=== PATIENT | female | born 1960 | race African-American/Black ===

== ENCOUNTER 2017-04-02 18:21 | Inpatient (IN) | payer MEDICAID ==
[~2017-04-02] VITALS: Ht 167.6 cm; Wt 41.0 kg
[2017-04-02] MEDS ORDERED: SODIUM CHLORIDE FLUSH 10ML SYR IVF ONE (18:30)
[2017-04-02 19:17] LABS: BASOPHILS # (AUTO) 0.03 x10^3/uL (0-0.1); BASOPHILS % (AUTO) 0 % (0-1); EOSINOPHILS # (AUTO) 0.02 x10^3/uL (0-0.4); EOSINOPHILS % (AUTO) 0 % (1-7); LYMPHOCYTES % (AUTO) 23 % (22-44); MD NO; MEAN CORPUSCULAR HEMOGLOBIN 30.2 pg (27.0-34.8); MEAN CORPUSCULAR HGB CONC 32.5 g/dL (32.4-35.8); MEAN CORPUSCULAR VOLUME 92.9 fL (80-100); MEAN PLATELET VOLUME 9.1 fL (7.4-10.4); MONOCYTES # (AUTO) 0.27 x10^3/uL (0.2-0.8); MONOCYTES % (AUTO) 3 % (2-9); NEUTROPHILS # (AUTO) 6.56 x10^3/uL (1.8-6.8); NEUTROPHILS % (AUTO) 74 % (42-75); PLATELET COUNT 324 x10^3/uL (130-400); RED BLOOD COUNT 5.52 x10^6/uL (3.82-5.3); RED CELL DISTRIBUTION WIDTH 13.7 % (9.6-15.2)
[2017-04-02 19:53] LABS: ALANINE AMINOTRANSFERASE 13 U/L (12-78); ALBUMIN 3.7 g/dL (3.4-5.0); ANION GAP 7 mmol/L (5-15); CALCIUM 10.1 mg/dL (8.5-10.1); CHLORIDE 103 mmol/L (98-107)
[2017-04-02 19:57] LABS: ALKALINE PHOSPHATASE 87 U/L (45-117); BILIRUBIN,TOTAL 0.6 mg/dL (0.2-1.0); TOTAL PROTEIN 7.5 g/dL (6.4-8.2); TROPONIN I < 0.015 ng/mL (0.000-0.045)
[2017-04-02] MEDS ORDERED: POLYETHYLENE GLYCOL 17 GM PACKET PO PRN (20:30)
[2017-04-02] MEDS: HEPARIN 5,000 UNITS/ML, 1ML SQ SCH (20:30)
[2017-04-02] MEDS ORDERED: BACITRACIN ZINC OINT 500U/GM, 0.9 GM ONE (20:43)
[2017-04-02 23:25] VITALS: BP 126/90
[2017-04-03] MEDS: NICOTINE 7 MG/24 HR PATCH.TD24 TD SCH ×2 (02:08→20:32)
[2017-04-03] MEDS: HEPARIN 5,000 UNITS/ML, 1ML SQ SCH ×3 (02:08→20:34)
[2017-04-03] MEDS: SODIUM CHLORIDE 0.9% 1,000 ML IV SCH ×3 (02:16→22:54)
[2017-04-03] MEDS: ONDANSETRON 2MG/ML, 2ML IVPush PRN ×2 (02:17→19:22)
[2017-04-03 03:59] VITALS: BP 108/75
[2017-04-03] MEDS ORDERED: FLU VACC QS2017-18 (36MOS+) UP/PF 0.5 ML IM-VACC ONE (05:00)
[2017-04-03] MEDS ORDERED: PNEUMOCOCCAL 23 VACCINE IM-VACC ONE (05:00)
[2017-04-03 05:35] LABS: BASOPHILS # (AUTO) 0.02 x10^3/uL (0-0.1); BASOPHILS % (AUTO) 0 % (0-1); EOSINOPHILS # (AUTO) 0.03 x10^3/uL (0-0.4); EOSINOPHILS % (AUTO) 0 % (1-7); LYMPHOCYTES # (AUTO) 2.43 x10^3/uL (1-3.4); LYMPHOCYTES % (AUTO) 28 % (22-44); MD NO; MEAN CORPUSCULAR HEMOGLOBIN 30.7 pg (27.0-34.8); MEAN CORPUSCULAR HGB CONC 33.1 g/dL (32.4-35.8); MEAN CORPUSCULAR VOLUME 92.9 fL (80-100); MEAN PLATELET VOLUME 8.6 fL (7.4-10.4); MONOCYTES # (AUTO) 0.55 x10^3/uL (0.2-0.8); MONOCYTES % (AUTO) 6 % (2-9); NEUTROPHILS # (AUTO) 5.82 x10^3/uL (1.8-6.8); NEUTROPHILS % (AUTO) 66 % (42-75); PLATELET COUNT 323 x10^3/uL (130-400); RED CELL DISTRIBUTION WIDTH 13.8 % (9.6-15.2)
[2017-04-03 05:36] LABS: CHLORIDE 103 mmol/L (98-107)
[2017-04-03 05:46] LABS: ALANINE AMINOTRANSFERASE 13 U/L (12-78); ALBUMIN 3.1 g/dL (3.4-5.0); ALKALINE PHOSPHATASE 76 U/L (45-117); ANION GAP 6 mmol/L (5-15); BILIRUBIN,TOTAL 0.7 mg/dL (0.2-1.0); CALCIUM 9.7 mg/dL (8.5-10.1); CREATININE 0.76 mg/dL (0.55-1.02); TOTAL PROTEIN 6.5 g/dL (6.4-8.2); TROPONIN I < 0.015 ng/mL (0.000-0.045)
[2017-04-03] MEDS ORDERED: LACTULOSE 20 GM/30 ML UDC PO PRN (08:00)
[2017-04-03] MEDS: POLYETHYLENE GLYCOL 17 GM PACKET PO SCH ×2 (09:00→10:10)
[2017-04-03 09:36] VITALS: BP 108/73
[2017-04-03] MEDS: SENNA/DOCUSATE TABLET PO SCH (10:11)
[2017-04-03] MEDS: DOCUSATE 100 MG CAPSULE PO SCH ×2 (10:11→20:34)
[2017-04-03] MEDS: ACETAMINOPHEN 325 MG TABLET PO PRN ×2 (10:14→20:49)
[2017-04-03] MEDS: BISACODYL 10 MG SUPP PR SCH (13:22)
[2017-04-03 14:06] VITALS: BP 117/77
[2017-04-03 15:09] LABS: CULTURE INDICATED? YES; MICROSCOPIC INDICATED
[2017-04-03 15:23] LABS: AMPHETAMINE SCREEN, URINE Negative (Negative); BARBITURATE SCREEN, URINE Negative (Negative); BENZODIAZEPINE SCREEN, URINE Negative (Negative); CANNABINOID SCREEN, URINE Positive (Negative); COCAINE SCREEN, URINE Positive (Negative); METHADONE SCREEN, URINE Negative (Negative); OPIATE SCREEN, URINE Negative (Negative)
[2017-04-03 20:50] VITALS: BP 100/70
[2017-04-04] MEDS: ACETAMINOPHEN 325 MG TABLET PO PRN (02:27)
[2017-04-04 02:30] VITALS: BP 119/77
[2017-04-04] MEDS: HEPARIN 5,000 UNITS/ML, 1ML SQ SCH ×3 (04:31→20:56)
[2017-04-04 08:00] VITALS: BP 129/69
[2017-04-04] MEDS: SENNA/DOCUSATE TABLET PO SCH (08:52)
[2017-04-04] MEDS: SODIUM CHLORIDE 0.9% 1,000 ML IV SCH ×2 (08:52→17:38)
[2017-04-04] MEDS: POLYETHYLENE GLYCOL 17 GM PACKET PO SCH (08:52)
[2017-04-04] MEDS: BISACODYL 10 MG SUPP PR SCH (08:52)
[2017-04-04] MEDS: DOCUSATE 100 MG CAPSULE PO SCH ×2 (08:52→20:56)
[2017-04-04] MEDS ORDERED: METOCLOPRAMIDE 5 MG/ML, 2ML IVPush PRN (13:30)
[2017-04-04 14:00] VITALS: BP 93/63
[2017-04-04 19:50] VITALS: BP 116/73
[2017-04-04] MEDS: NICOTINE 7 MG/24 HR PATCH.TD24 TD SCH (20:56)
[2017-04-05 02:46] VITALS: BP 123/78
[2017-04-05] MEDS: SODIUM CHLORIDE 0.9% 1,000 ML IV SCH ×2 (05:02→17:00)
[2017-04-05] MEDS: HEPARIN 5,000 UNITS/ML, 1ML SQ SCH ×3 (05:03→20:23)
[2017-04-05 07:17] VITALS: BP 120/79
[2017-04-05] MEDS: SENNA/DOCUSATE TABLET PO SCH (08:36)
[2017-04-05] MEDS: DOCUSATE 100 MG CAPSULE PO SCH ×2 (08:36→19:46)
[2017-04-05] MEDS: BISACODYL 10 MG SUPP PR SCH (08:36)
[2017-04-05] MEDS: POLYETHYLENE GLYCOL 17 GM PACKET PO SCH (08:36)
[2017-04-05] MEDS: DIPHENHYDRAMINE 25 MG CAPSULE PO PRN ×2 (11:55→19:46)
[2017-04-05 14:28] VITALS: BP 124/76
[2017-04-05] MEDS ORDERED: OMNIPAQUE 350 MG/ML, 100ML BOTTLE ONE (17:08)
[2017-04-05] MEDS ORDERED: GLYB1TAB2 PO (17:40)
[2017-04-05] MEDS ORDERED: LINA5TAB PO (17:40)
[2017-04-05 19:30] VITALS: BP 105/64
[2017-04-05] MEDS: NICOTINE 7 MG/24 HR PATCH.TD24 TD SCH (20:23)
[2017-04-05] MEDS: TEMAZEPAM 15 MG CAPSULE PO PRN (22:06)
[2017-04-06] MEDS: DIPHENHYDRAMINE 25 MG CAPSULE PO PRN ×2 (01:50→17:43)
[2017-04-06] MEDS: SODIUM CHLORIDE 0.9% 1,000 ML IV SCH ×2 (01:51→17:43)
[2017-04-06 02:52] VITALS: BP 111/72
[2017-04-06] MEDS: HEPARIN 5,000 UNITS/ML, 1ML SQ SCH ×3 (05:05→20:06)
[2017-04-06 05:34] LABS: BASOPHILS # (AUTO) 0.07 x10^3/uL (0-0.1); BASOPHILS % (AUTO) 1 % (0-1); EOSINOPHILS # (AUTO) 0.29 x10^3/uL (0-0.4); EOSINOPHILS % (AUTO) 4 % (1-7); LYMPHOCYTES # (AUTO) 2.01 x10^3/uL (1-3.4); LYMPHOCYTES % (AUTO) 27 % (22-44); MD NO; MEAN CORPUSCULAR HEMOGLOBIN 30.9 pg (27.0-34.8); MEAN CORPUSCULAR HGB CONC 32.8 g/dL (32.4-35.8); MEAN PLATELET VOLUME 8.7 fL (7.4-10.4); MONOCYTES % (AUTO) 5 % (2-9); NEUTROPHILS # (AUTO) 4.71 x10^3/uL (1.8-6.8); NEUTROPHILS % (AUTO) 63 % (42-75); PLATELET COUNT 304 x10^3/uL (130-400); RED BLOOD COUNT 3.79 x10^6/uL (3.82-5.3); RED CELL DISTRIBUTION WIDTH 13.5 % (9.6-15.2)
[2017-04-06 05:37] LABS: ALBUMIN 2.5 g/dL (3.4-5.0); ANION GAP 6 mmol/L (5-15); CALCIUM 9.2 mg/dL (8.5-10.1); CHLORIDE 105 mmol/L (98-107)
[2017-04-06 05:41] LABS: ALANINE AMINOTRANSFERASE 10 U/L (12-78); ALKALINE PHOSPHATASE 73 U/L (45-117); BILIRUBIN,TOTAL 0.3 mg/dL (0.2-1.0); TOTAL PROTEIN 5.2 g/dL (6.4-8.2)
[2017-04-06] MEDS ORDERED: GOLYTELY 4,000ML ORAL.SOL PO ONE (07:30)
[2017-04-06] MEDS ORDERED: CEFTRIAXONE PMX 1GM/50ML 50 ML IV SCH (07:30)
[2017-04-06 08:26] VITALS: BP 118/75
[2017-04-06] MEDS: SENNA/DOCUSATE TABLET PO SCH (08:31)
[2017-04-06] MEDS: POLYETHYLENE GLYCOL 17 GM PACKET PO SCH (08:31)
[2017-04-06] MEDS: DOCUSATE 100 MG CAPSULE PO SCH ×2 (08:31→20:07)
[2017-04-06] MEDS: BISACODYL 10 MG SUPP PR SCH (08:37)
[2017-04-06 12:45] VITALS: BP 129/82
[2017-04-06 19:27] VITALS: BP 110/72
[2017-04-06] MEDS: NICOTINE 7 MG/24 HR PATCH.TD24 TD SCH (20:06)
[2017-04-06] MEDS ORDERED: CEFTRIAXONE 1,000 MG in SODIUM CHLORIDE 0.9% 50 ML IV SCH (20:30)
[2017-04-06] MEDS: TEMAZEPAM 15 MG CAPSULE PO PRN (23:13)
[2017-04-07] MEDS: DIPHENHYDRAMINE 25 MG CAPSULE PO PRN ×4 (00:35→19:48)
[2017-04-07 00:38] VITALS: BP 116/73
[2017-04-07] MEDS: SODIUM CHLORIDE 0.9% 1,000 ML IV SCH ×2 (05:07→11:45)
[2017-04-07] MEDS: HEPARIN 5,000 UNITS/ML, 1ML SQ SCH ×3 (05:07→19:49)
[2017-04-07 05:37] LABS: CHLORIDE 106 mmol/L (98-107)
[2017-04-07 05:44] LABS: ANION GAP 7 mmol/L (5-15); CALCIUM 9.1 mg/dL (8.5-10.1); CREATININE 0.61 mg/dL (0.55-1.02)
[2017-04-07] MEDS: SENNA/DOCUSATE TABLET PO SCH (07:47)
[2017-04-07] MEDS: DOCUSATE 100 MG CAPSULE PO SCH ×2 (07:47→19:50)
[2017-04-07] MEDS: BISACODYL 10 MG SUPP PR SCH (07:47)
[2017-04-07] MEDS: CEFTRIAXONE 1,000 MG in SODIUM CHLORIDE 0.9% 50 ML IV SCH (07:48)
[2017-04-07] MEDS: POLYETHYLENE GLYCOL 17 GM PACKET PO SCH (07:48)
[2017-04-07 08:00] VITALS: BP 111/65
[2017-04-07 14:12] VITALS: BP 93/61
[2017-04-07 19:24] VITALS: BP_SYST 134; BP_SYST 146; BP_DIAS 79; BP_DIAS 85
[2017-04-07] MEDS: TEMAZEPAM 15 MG CAPSULE PO PRN (19:48)
[2017-04-07] MEDS: NICOTINE 7 MG/24 HR PATCH.TD24 TD SCH (19:50)
[2017-04-08] MEDS ORDERED: ZOLPIDEM 5MG TABLET PO ONE (00:30)
[2017-04-08] MEDS: SODIUM CHLORIDE 0.9% 1,000 ML IV SCH ×2 (00:36→07:30)
[2017-04-08 01:30] VITALS: BP 119/73
[2017-04-08] MEDS: DIPHENHYDRAMINE 25 MG CAPSULE PO PRN (05:11)
[2017-04-08] MEDS: ACETAMINOPHEN 325 MG TABLET PO PRN (05:11)
[2017-04-08] MEDS: HEPARIN 5,000 UNITS/ML, 1ML SQ SCH (05:12)
[2017-04-08] MEDS: CEFTRIAXONE 1,000 MG in SODIUM CHLORIDE 0.9% 50 ML IV SCH (07:30)
[2017-04-08 08:11] VITALS: BP 106/76
[2017-04-08] MEDS: BISACODYL 10 MG SUPP PR SCH (09:24)
[2017-04-08] MEDS: POLYETHYLENE GLYCOL 17 GM PACKET PO SCH (09:26)
[2017-04-08] MEDS: DOCUSATE 100 MG CAPSULE PO SCH (09:26)
[2017-04-08] MEDS: SENNA/DOCUSATE TABLET PO SCH (09:26)
[2017-04-08] MEDS ORDERED: ONDA4TAB13 SL (10:32)
[2017-04-08] MEDS ORDERED: POLY17PO5 PO (10:32)
[2017-04-08] MEDS ORDERED: NICO-485 TD (10:32)
[2017-04-08] MEDS ORDERED: [UNRECOGNIZED DRUG - CODE] PO (10:32)
[2017-04-08] MEDS ORDERED: CEFD300C37 PO (10:32)
[2017-04-08] MEDS ORDERED: ACET325T14 PO (10:32)
== END 2017-04-08 11:33 | disposition home or self-care (01) | DRG 391 ==
LOC: ED 20:44 → EDIP 20:45 → 4NOR 22:30 → DCLOUNGE 04-08 11:20
PROVIDERS: ADMIT Internal Medicine; ATTEND Internal Medicine
DX: K59.00 Constipation, unspecified (principal); E43 Unspecified severe protein-calorie malnutrition; R18.8 Other ascites; E87.1 Hypo-osmolality and hyponatremia; D75.1 Secondary polycythemia; N39.0 Urinary tract infection, site not specified; Z68.1 Body mass index [BMI] 19.9 or less, adult; K76.89 Other specified diseases of liver; D25.9 Leiomyoma of uterus, unspecified; F12.90 Cannabis use, unspecified, uncomplicated; F14.10 Cocaine abuse, uncomplicated; J45.909 Unspecified asthma, uncomplicated; L29.9 Pruritus, unspecified; N83.9 Noninflammatory disorder of ovary, fallopian tube and broad ligament, unspecified; R62.7 Adult failure to thrive; Z66 Do not resuscitate; Z72.0 Tobacco use; Z23 Encounter for immunization
CPT/HCPCS: 36415; 71275; 74022; 74177; 76857; 80048; 80053; 80307; 81001; 82378; 83690; 83735; 84100; 84443; 84484; 85025; 86304; 86677; 86703; 87086; 87899; 93005; 96374; J0696; J1644; J2405; Q9967; G0435; J2765; J7030; Q0163

== ENCOUNTER 2018-05-12 20:29 | Inpatient (IN) | payer MEDICAID ==
[~2018-05-12] VITALS: Ht 167.6 cm; Wt 41.8 kg
[~2018-05-12 20:29] MED LIST: ACET325T14 PO; CEFD300C37 PO; GLYB1TAB2 PO; LINA5TAB PO; NICO-485 TD; ONDA4TAB13 SL; POLY17PO5 PO; [UNRECOGNIZED DRUG - CODE] PO
--- NOTE | 2018-05-12 20:54 | NUR ---
PT ARRIVES TO ED WITH C/O OF ABD PAIN WITH N/D NO VOMITTING. PT REPORTS SHE STARTED HAVING BLACK STOOLS TODAY. PT ALSO REPORTS NOT FEELING WELL FOR 2 DAYS. PT TO PROVIDE SAMPLE AT THIS TIME. PT DENIES ANY TRAUMA. PT CONNECTED TO ALL MONITORS AND CALL LIGHT IN REACH. AWAITING FURTHER ORDERS. PT HAD PIV PLACED AND FLUIDS STARTED. PT HAD EKG COMPLETED ON ARRIVAL.
[2018-05-12] MEDS ORDERED: ONDANSETRON 2MG/ML, 2ML ONE (20:59)
[2018-05-12] MEDS ORDERED: FAMOTIDINE 20 MG/2 ML ONE (20:59)
[2018-05-12] MEDS ORDERED: FAMOTIDINE 20 MG/2 ML IVP ONE (21:00)
[2018-05-12] MEDS ORDERED: SODIUM CHLORIDE FLUSH 10ML SYR IVF ONE (21:00)
[2018-05-12] MEDS ORDERED: ONDANSETRON 2MG/ML, 2ML IVPush ONE (21:00)
[2018-05-12] MEDS ORDERED: SODIUM CHLORIDE 0.9% 1,000ML IVBOLUS ONE (21:00)
[2018-05-12 21:14] LABS: BASOPHILS # (AUTO) 0.02 x10^3/uL (0-0.1); BASOPHILS % (AUTO) 0 % (0-1); EOSINOPHILS # (AUTO) 0.02 x10^3/uL (0-0.4); EOSINOPHILS % (AUTO) 0 % (1-7); LYMPHOCYTES # (AUTO) 1.63 x10^3/uL (1-3.4); LYMPHOCYTES % (AUTO) 12 % (22-44); MD NO; MEAN CORPUSCULAR HEMOGLOBIN 30.8 pg (27.0-34.8); MEAN CORPUSCULAR HGB CONC 32.9 g/dL (32.4-35.8); MEAN CORPUSCULAR VOLUME 93.8 fL (80-100); MEAN PLATELET VOLUME 8.5 fL (7.4-10.4); MONOCYTES # (AUTO) 0.51 x10^3/uL (0.2-0.8); MONOCYTES % (AUTO) 4 % (2-9); NEUTROPHILS # (AUTO) 11.37 x10^3/uL (1.8-6.8); NEUTROPHILS % (AUTO) 84 % (42-75); PLATELET COUNT 339 x10^3/uL (130-400); RED BLOOD COUNT 5.02 x10^6/uL (3.82-5.3); RED CELL DISTRIBUTION WIDTH 14.1 % (9.6-15.2)
[2018-05-12 21:22] LABS: INTERNATIONAL NORMALIZED RATIO 1.03 (0.93-1.1); PROTHROMBIN TIME 10.9 Seconds (9.6-11.5)
[2018-05-12 21:23] LABS: ALANINE AMINOTRANSFERASE 15 U/L (12-78); ALBUMIN 3.8 g/dL (3.4-5.0); ANION GAP 11 mmol/L (5-15); CALCIUM 10.5 mg/dL (8.5-10.1); CHLORIDE 104 mmol/L (98-107)
[2018-05-12 21:25] LABS: ALKALINE PHOSPHATASE 108 U/L (45-117); BILIRUBIN,TOTAL 0.5 mg/dL (0.2-1.0)
--- NOTE | 2018-05-12 21:41 | NUR ---
PT ABBY TO PROVIDE JOSEFINA A THIS ITME. Addendum: 05/12/18 at 2142 by JAUN PT UNABLE TO PROVIDE STOOL AT THIS TIME.
--- NOTE | 2018-05-12 22:12 | NUR ---
ASSUMED CARE OF PATIENT. REPORT GIVEN FROM CONSTANTINE CONN PT RESTING IN ROOM. VS STABLE. PT REPORTS SHE IS NOT ABLE TO GIVE A STOOL SAMPLE AT THIS TIME. WILL CONTINUE TO MONITOR
[2018-05-12] MEDS ORDERED: TRAZ50TA66 PO (22:24)
--- NOTE | 2018-05-12 22:24 | NUR ---
DR OATES HAS UPDATED PATIENT.
[2018-05-12] MEDS ORDERED: PANTOPRAZOLE 40 MG IV ONE (22:49)
[2018-05-12] MEDS ORDERED: SUCRALFATE 1 GM TABLET PO SCH ×3 (23:00→23:03)
[2018-05-12] MEDS ORDERED: PANTOPRAZOLE 40 MG IV IVPush SCH (23:00)
[2018-05-12 23:29] VITALS: BP 114/76
[2018-05-12] MEDS ORDERED: PANTOPRAZOLE 40 MG IV IVPush ONE (23:30)
[2018-05-13 01:28] VITALS: BP 113/79
[2018-05-13] MEDS ORDERED: GABAPENTIN 300 MG CAPSULE PO PRN (01:30)
[2018-05-13] MEDS ORDERED: PANTOPRAZOLE 80 MG in SODIUM CHLORIDE 0.9% 100 ML IV SCH (01:30)
[2018-05-13] MEDS ORDERED: [UNRECOGNIZED DRUG - OTHER] MC SCH ×2 (01:30→01:44)
[2018-05-13] MEDS ORDERED: ACETAMINOPHEN 325 MG TABLET PO PRN (01:30)
[2018-05-13] MEDS ORDERED: BISACODYL 10 MG SUPP PR PRN (01:30)
[2018-05-13] MEDS ORDERED: ONDANSETRON 2MG/ML, 2ML IVPush PRN (01:30)
[2018-05-13] MEDS ORDERED: LORazepam 2 MG/ML, 1ML IVPush ONE (02:00)
[2018-05-13] MEDS: SODIUM CHLORIDE 0.9% 1,000 ML IV SCH ×2 (02:24→17:24)
[2018-05-13 07:01] VITALS: BP 103/74
[2018-05-13] MEDS: PANTOPRAZOLE 40 MG IV IVPush SCH ×2 (08:48→19:32)
[2018-05-13] MEDS: AMOXICILLIN 500 MG CAPSULE PO SCH (08:49)
[2018-05-13] MEDS: CLARITHROMYCIN 500 MG TABLET PO SCH ×2 (08:49→20:33)
[2018-05-13] MEDS ORDERED: FAMOTIDINE 20 MG/2 ML IVPush SCH (09:00)
[2018-05-13] MEDS ORDERED: PANTOPRAZOLE 40 MG IV IVPush SCH (09:00)
[2018-05-13 12:55] VITALS: BP 97/63
[2018-05-13] MEDS: morphine SULFATE 10 MG/ML, 1ML IVPush PRN ×2 (13:48→19:33)
[2018-05-13] MEDS: D5%-0.45% NACL 1,000 ML IV SCH (14:58)
[2018-05-13] MEDS: TRAZODONE 50MG TABLET PO SCH (20:33)
[2018-05-13 20:40] VITALS: BP 98/66
[2018-05-14 00:05] VITALS: BP 107/75
[2018-05-14] MEDS: morphine SULFATE 10 MG/ML, 1ML IVPush PRN ×4 (00:28→16:24)
[2018-05-14] MEDS: D5%-0.45% NACL 1,000 ML IV SCH ×2 (03:40→16:29)
[2018-05-14 05:52] LABS: MEAN CORPUSCULAR HEMOGLOBIN 31.3 pg (27.0-34.8); MEAN CORPUSCULAR HGB CONC 33.3 g/dL (32.4-35.8); MEAN CORPUSCULAR VOLUME 94.1 fL (80-100); PLATELET COUNT 197 x10^3/uL (130-400); RED BLOOD COUNT 3.34 x10^6/uL (3.82-5.3); RED CELL DISTRIBUTION WIDTH 14.1 % (9.6-15.2)
[2018-05-14 06:01] LABS: ANION GAP 3 mmol/L (5-15); CALCIUM 8.9 mg/dL (8.5-10.1); CHLORIDE 108 mmol/L (98-107); CREATININE 0.76 mg/dL (0.55-1.02)
[2018-05-14 06:39] VITALS: BP 105/71
[2018-05-14 06:39] LABS: BASOPHILS # (AUTO) 0.03 x10^3/uL (0-0.1); BASOPHILS % (AUTO) 1 % (0-1); EOSINOPHILS # (AUTO) 0.06 x10^3/uL (0-0.4); EOSINOPHILS % (AUTO) 1 % (1-7); LYMPHOCYTES # (AUTO) 1.27 x10^3/uL (1-3.4); LYMPHOCYTES % (AUTO) 28 % (22-44); MD SCAN; MONOCYTES # (AUTO) 0.29 x10^3/uL (0.2-0.8); MONOCYTES % (AUTO) 6 % (2-9); NEUTROPHILS % (AUTO) 64 % (42-75)
[2018-05-14] MEDS: PANTOPRAZOLE 40 MG IV IVPush SCH ×2 (09:00→20:08)
[2018-05-14] MEDS ORDERED: PROPOFOL 10 MG/ML, 20ML ONE (09:16)
[2018-05-14] MEDS ORDERED: FENTANYL PF 100 MCG/2ML IV PRN (09:30)
[2018-05-14] MEDS ORDERED: ALBUTEROL SULFATE 2.5 MG/3 ML NPPB PRN (09:30)
[2018-05-14] MEDS: AMOXICILLIN 500 MG CAPSULE PO SCH (11:18)
[2018-05-14] MEDS: CLARITHROMYCIN 500 MG TABLET PO SCH ×2 (11:18→20:08)
[2018-05-14] MEDS: SODIUM CHLORIDE 0.9% 1,000 ML IV SCH (11:29)
[2018-05-14 12:11] VITALS: BP 111/67
[2018-05-14 19:05] VITALS: BP 102/55
[2018-05-14] MEDS: LORazepam 1MG TABLET PO PRN (20:08)
[2018-05-14] MEDS: TRAZODONE 50MG TABLET PO SCH (20:08)
[2018-05-15 00:10] VITALS: BP 101/59
[2018-05-15] MEDS: morphine SULFATE 10 MG/ML, 1ML IVPush PRN ×4 (00:24→12:33)
[2018-05-15] MEDS: D5%-0.45% NACL 1,000 ML IV SCH ×2 (01:48→12:00)
[2018-05-15] MEDS: LORazepam 1MG TABLET PO PRN (03:53)
[2018-05-15 06:57] VITALS: BP 100/62
[2018-05-15] MEDS: CLARITHROMYCIN 500 MG TABLET PO SCH (08:57)
[2018-05-15] MEDS: AMOXICILLIN 500 MG CAPSULE PO SCH (08:57)
[2018-05-15] MEDS: PANTOPRAZOLE 40 MG IV IVPush SCH (08:58)
[2018-05-15] MEDS ORDERED: OMEP-110 PO (13:54)
[2018-05-15] MEDS ORDERED: CLAR500T PO (13:54)
[2018-05-15] MEDS ORDERED: AMOX-291 PO (13:54)
[2018-05-15] MEDS ORDERED: TRAZ50TA66 PO (13:54)
[2018-05-15 14:00] VITALS: BP 105/59
[2018-05-15] MEDS: SODIUM CHLORIDE 0.9% 1,000 ML IV SCH (14:00)
== END 2018-05-15 15:38 | disposition home or self-care (01) | DRG 377 ==
LOC: ED 22:58 → EDIP 23:16 → 3NE 23:52
PROVIDERS: ADMIT Internal Medicine; ATTEND Internal Medicine
PROC: 0DB68ZX Excision of Stomach, Via Natural or Artificial Opening Endoscopic, Diagnostic (ICD-10-PCS; principal; 2018-05-14 09:00)
DX: K29.61 Other gastritis with bleeding (principal); E43 Unspecified severe protein-calorie malnutrition; Z68.1 Body mass index [BMI] 19.9 or less, adult; F17.213 Nicotine dependence, cigarettes, with withdrawal; K20.9 Esophagitis, unspecified; K26.4 Chronic or unspecified duodenal ulcer with hemorrhage; F14.90 Cocaine use, unspecified, uncomplicated; F17.210 Nicotine dependence, cigarettes, uncomplicated; F31.9 Bipolar disorder, unspecified; J45.909 Unspecified asthma, uncomplicated; R62.7 Adult failure to thrive; Z80.1 Family history of malignant neoplasm of trachea, bronchus and lung; Z86.59 Personal history of other mental and behavioral disorders; Z79.899 Other long term (current) drug therapy; B96.81 Helicobacter pylori [H. pylori] as the cause of diseases classified elsewhere
CPT/HCPCS: 36415; 99285; J3490; 80048; 80053; 83690; 83735; 84100; 85014; 85018; 85025; 85610; 85730; 86677; 88305; 88342; 90656; 93005; 96361; 96374; 96375; G0378; J2405; J2704; C9113; J2060; J2270; J7030

== ENCOUNTER 2018-06-30 23:15 | Emergency (ER) | payer MEDICAID ==
[~2018-06-30] VITALS: Ht 167.6 cm; Wt 55.0 kg
[~2018-06-30 23:15] MED LIST changes: +AMOX-291 PO; +CLAR500T PO; +OMEP-110 PO; +TRAZ50TA66 PO
--- NOTE | 2018-06-30 23:31 | NUR ---
FIRST CONTACT WITH PT. PT FELL ON RIGHT KNEE AT 1230 THIS AFTERNOON. KNEE IS SWOLLEN. PT UNABLE TO AMBULATE ON LEG. PT'S AOX4. RESPS EVEN AND UNLABORED.
[2018-06-30] MEDS ORDERED: OXYcodone/APAP 5/325MG TABLET ONE (23:41)
--- NOTE | 2018-06-30 23:44 | NUR ---
XRAY IN ROOM NOW.
--- NOTE | 2018-06-30 23:44 | NUR ---
PT MEDICATED PER EMAR. PT TOLERATED WELL.
[2018-07-01] MEDS ORDERED: LIDOCAINE 1%-EPI 1:100K, 20ML SQ ONE
[2018-07-01] MEDS ORDERED: OXYcodone/APAP 5/325MG TABLET PO ONE
[2018-07-01] MEDS ORDERED: LIDOCAINE 1%-EPI 1:100K, 20ML ONE (00:03)
--- NOTE | 2018-07-01 00:17 | NUR ---
PT IN CT NOW.
--- NOTE | 2018-07-01 00:37 | NUR ---
PT MOVED TO ROOM 15 NOW.
--- NOTE | 2018-07-01 01:16 | NUR ---
PHYSICIAN AT BEDSIDE PERFORMING ARTHROCENTESIS OF RIGHT KNEE.
[2018-07-01] MEDS ORDERED: IBUPROFEN 600 MG TABLET PO ONE (01:30)
[2018-07-01] MEDS ORDERED: IBUPROFEN 600 MG TABLET ONE (01:34)
--- NOTE | 2018-07-01 01:36 | NUR ---
TASK RN. PT REFUSED IBUPROFEN. PT STATES "IBUPROFEN MAKES ME NAUSEA." EDMD NOTIFIED.
[2018-07-01] MEDS ORDERED: HYDROcodone/APAP 5/325 TABLET ONE (01:40)
--- NOTE | 2018-07-01 01:42 | NUR ---
task rn. pt medicated per emar. pt tolerated well.
[2018-07-01] MEDS ORDERED: HYDROcodone/APAP 5/325 TABLET PO ONE (02:00)
[2018-07-01 02:58] VITALS: BP 119/76
== END 2018-07-01 03:00 | disposition home or self-care (01) ==
LOC: ED 23:38
DX: G89.11 Acute pain due to trauma (principal); M25.561 Pain in right knee; M25.551 Pain in right hip; W22.8XXA Striking against or struck by other objects, initial encounter; Y93.89 Activity, other specified; Y92.89 Other specified places as the place of occurrence of the external cause; Y99.8 Other external cause status
CPT/HCPCS: 20611; 82962; 99284